=== PATIENT | female | born 1950 ===

== ENCOUNTER 2018-08-07 12:42 | Emergency (ER) | payer OTHER ==
[2018-08-07 12:47] VITALS: BMI 24.2
--- NOTE | 2018-08-07 13:48 | C.PDOC ---
History Of Present Illness 68 year old female presents to the ED for evaluation of dry and itchy throat which began around one month ago. Patient also reports right ear pain for two days and dry cough for unspecified amount time. She denies fever, chills, ear discharge, shortness of breath. Time Seen by Provider: 08/07/18 12:52 Chief Complaint (Nursing): ENT Problem History Per: Patient History/Exam Limitations: no limitations Onset/Duration Of Symptoms: Days Current Symptoms Are (Timing): Still Present Associated Symptoms: Cough, Other (dry, itchy throat ). denies: Fever, Chills, Sputum Ear Symptoms: Left: None, Right: Ear Pain Additional History Per: Patient Past Medical History Reviewed: Historical Data, Nursing Documentation, Vital Signs Vital Signs: Last Vital Signs Temp 98.2 F 08/07/18 12:47 Pulse 67 08/07/18 12:47 Resp 18 08/07/18 12:47 BP 146/81 08/07/18 12:47 Pulse Ox 96 08/07/18 12:47 - Medical History PMH: No Chronic Diseases Surgical History: No Surg Hx Family History: States: Unknown Family Hx - Social History Hx Alcohol Use: No Hx Substance Use: No Review Of Systems Constitutional: Negative for: Fever, Chills ENT: Positive for: Ear Pain (right), Other (itchy, dry throat ) Respiratory: Positive for: Cough. Negative for: Shortness of Breath, Sputum Physical Exam - Physical Exam Appears: Non-toxic, No Acute Distress Skin: Normal Color, Warm, Dry Head: Atraumatic, Normacephalic Eye(s): bilateral: Normal Inspection Oral Mucosa: Moist Throat: Erythema, No Exudate, Other (mild left tonsillar swelling ) Neck: Supple Lymphatic: No Adenopathy Cardiovascular: Rhythm Regular Respiratory: Normal Breath Sounds, No Rales, No Rhonchi, No Wheezing Neurological/Psych: Oriented x3, Normal Speech, Normal Cognition ED Course And Treatment O2 Sat by Pulse Oximetry: 96 (on RA) Pulse Ox Interpretation: Normal Medical Decision Making Medical Decision Making: Impression: 68 year old female with dry/itchy throat, right ear pain, dry cough Plan: * rapid strep test * Tylenol PO * reassess and disposition Progress: Rapid Strep test ordered and reviewed. Tylenol PO given. 1450 pt with neg strep, d/c home with pmd f/u. tylenol. Disposition Counseled Patient/Family Regarding: Studies Performed, Diagnosis, Need For Followup - Disposition Referrals: [facility] [Outside] Disposition: HOME/ ROUTINE Disposition Time: 14:54 Condition: GOOD Additional Instructions: Tylenol para el dolor. Monisha grgaras con agua salada caliente varias veces al da. Seguimiento en clnica mdica en pocos contreras. Regrese a la mikel de emergen cias para cualquier sntoma peor. Tylenol for pain. Gargle with warm salty water several times a day. Follow up in medical clinic in a few days. Return to ER For any worse symptoms. Instructions: Viral Pharyngitis (DC) Forms: [facility] (Marshallese), Gen Discharge Inst Swiss, [employer] (Swiss) Print Language: TAIWANESE - Clinical Impression Clinical Impression: Ear pain, right, Pharyngitis - PA / RESPIRATORY CARE FACULTY / Resident Statement MD/DO has reviewed & agrees with the documentation as recorded. - Scribe Statement The provider has reviewed the documentation as recorded by the Scribe (Koki Hernandez) All medical record entries made by the Scribe were at my direction and personally dictated by me. I have reviewed the chart and agree that the record accurately reflects my personal performance of the history, physical exam, medical decision making, and the department course for this patient. I have also personally directed, reviewed, and agree with the discharge instructions and disposition.
[2018-08-07 15:01] VITALS: BP 145/83; PULSE 61; RESP 20; TEMP 97.9
[2018-08-07 17:12] VITALS: O2SAT 96
== END 2018-08-07 15:03 | disposition home or self-care (01) ==
LOC: C.ER 12:42
DX: H92.01 Otalgia, right ear (principal); J02.9 Acute pharyngitis, unspecified